=== PATIENT | male | born 1980 | race Caucasian/White ===

== ENCOUNTER → 2016-05-27 | Outpatient (CLI) | payer BC ==
[~2016-05-27] MED LIST: Iopamidol 755 MG/ML 500 ML Multipack Bottle IVPUSH STA
--- NOTE | 2016-05-27 14:58 | CT ---
EXAMINATION: CTA chest HISTORY: Shortness of breath COMPARISON: None TECHNIQUE: Axial CT images obtained through the chest following the administration of 65 mL of Isovu e-370 in the left antecubital fossa. Coronal and sagittal reconstructions obtained. FINDINGS: The lungs are clear without focal consolidation. No pleural effusion or pneumothorax. Mini mal dependent atelectasis is noted. There is a tiny right major fissure nodule. The heart is normal in size without a pericardial effusion. No mediastinal or hilar lymphadenopathy. No axillary lymphad enopathy. Thoracic aorta is normal in caliber. The main and central pulmonary arteries are patent wi thout evidence of a pulmonary embolism. The central airways are clear. There is a 3.7 cm partially peripherally calcified cyst within the spleen. Otherwise the visualized images of the upper abdomen appear normal. No suspicious osseous bodies identified. IMPRESSION: 1. No acute cardiopulmonary finding. 2. There is a 3.7 cm cyst within the spleen.
== END ==
LOC: MW.CT 14:07
PROVIDERS: ATTEND Student in an Organized Health Care Education/Training Program
DX: R06.02 Shortness of breath (principal); R07.1 Chest pain on breathing; D73.4 Cyst of spleen
CPT/HCPCS: 71275; Q9967

== ENCOUNTER 2017-12-13 12:22 | Emergency (ER) | payer BC, OTHER ==
[2017-12-13] MEDS ORDERED: Sodium Chloride 0.9% 1,000 ML IV ONE (12:38)
[2017-12-13] MEDS ORDERED: Ondansetron 4 MG/2 ML SDV IVPUSH ONE (12:38)
--- NOTE | 2017-12-13 12:39 | EDM.PDOC ---
ED HPI GENERAL MEDICAL PROBLEM - General Chief Complaint: Abdominal Pain Stated Complaint: LOWER ABD PAIN Time Seen by Provider: 12/13/17 12:38 Source of Information: Reports: Patient - History of Present Illness INITIAL COMMENTS - FREE TEXT/NARRATIVE: HISTORY AND PHYSICAL: History of present illness: []Patient presents with pain across his lower abdomen left and right frog quadrant for 1.5 hours no fever nausea vomiting chills sweats no chest pain shortness breath headache dizziness palpitation no bowel or urine symptoms pain 9 out of 10 initially has eased up to 2 out of 10 on arrival Review of systems: As per history of present illness and below otherwise all systems reviewed and negative. Past medical history: As per history of present illness and as reviewed below otherwise noncontributory. Surgical history: As per history of present illness and as reviewed below otherwise noncontributory. Social history: No reported history of drug or alcohol abuse. Family history: As per history of present illness and as reviewed below otherwise noncontributory. Physical exam: HEENT: Atraumatic, normocephalic, pupils reactive, negative for conjunctival pallor or scleral icterus, mucous membranes moist, throat clear, neck supple, nontender, trachea midline. Lungs: Clear to auscultation, breath sounds equal bilaterally, chest nontender. Heart: S1S2, regular, negative for clicks, rubs, or JVD. Abdomen: Soft, nondistended, nontender. Negative for masses or hepatosplenomegaly. Negative for costovertebral tenderness. Pelvis: Stable nontender. Genitourinary: No hernia appreciated Rectal: Deferred. Extremities: Atraumatic, negative for cords or calf pain. Neurovascular unremarkable. Neuro: Awake, alert, oriented. Cranial nerves II through XII unremarkable. Cerebellum unremarkable. Motor and sensory unremarkable throughout. Exam nonfocal. Diagnostics: []CBC CMP UA troponin lipase ET abdomen pelvis with and without contrast Therapeutics: []1 L normal saline bolus Zofran 8 mg IV Reglan 10 mg IV T Reglan RP Woradol Impression: abdominalpain Definitive disposition and diagnosis as appropriate pending reevaluation and review of above. Left Lower Abdominal Pain Score (Numeric/FACES): 4 - Related Data Allergies Allergy/AdvReac Type Severity Reaction Status Date / Time No Known Allergies Allergy Verified 08/16/13 09:04 Home Meds: Home Meds Vortioxetine Hydrobromide [Trintellix] 20 mg PO DAILY 12/13/17 [History] ED ROS GENERAL - Review of Systems Review Of Systems: See Below ED EXAM, GENERAL - Physical Exam Exam: See Below Course - Vital Signs Last Recorded V/S: Last Vital Signs Temp 98.1 F 12/13/17 12:37 Pulse 72 12/13/17 14:15 Resp 18 12/13/17 12:37 BP 125/88 12/13/17 14:15 Pulse Ox 97 12/13/17 14:15 - Orders/Labs/Meds Orders: Active Orders 24 hr Category Date Time Status Abdomen Pelvis w wo Cont [CT] Stat Exams 12/13/17 12:52 Taken Labs: Laboratory Tests 12/13/17 12/13/17 12/13/17 Range/Units 12:53 12:53 14:22 WBC 6.85 (4.0-11.0) K/uL RBC 4.97 (4.50-5.90) M/uL Hgb 14.9 (13.0-17.0) g/dL Hct 43.9 (38.0-50.0) % MCV 88.3 (80.0-98.0) fL MCH 30.0 (27.0-32.0) pg MCHC 33.9 (31.0-37.0) g/dL RDW Std Deviation 42.0 (28.0-62.0) fl RDW Coeff of Mercedes 13 (11.0-15.0) % Plt Count 185 (150-400) K/uL MPV 11.10 (7.40-12.00) fL Neut % (Auto) 53.2 (48.0-80.0) % Lymph % (Auto) 32.7 (16.0-40.0) % [place] % (Auto) 9.8 (0.0-15.0) % Eos % (Auto) 3.9 (0.0-7.0) % Baso % (Auto) 0.4 (0.0-1.5) % Neut # (Auto) 3.6 (1.4-5.7) K/uL Lymph # (Auto) 2.2 (0.6-2.4) K/uL [place] # (Auto) 0.7 (0.0-0.8) K/uL Eos # (Auto) 0.3 (0.0-0.7) K/uL Baso # (Auto) 0.0 (0.0-0.1) K/uL Nucleated RBC % 0.0 /100WBC Nucleated RBCs # 0 K/uL Sodium 139 (136-148) mmol/L Potassium 3.9 (3.5-5.1) mmol/L Chloride 106 (98-107) mmol/L Carbon Dioxide 26.5 (21.0-32.0) mmol/L BUN 19 H (7.0-18.0) mg/dL Creatinine 1.0 (0.8-1.3) mg/dL Est Cr Clr Drug Dosing 112.08 mL/min Estimated GFR (MDRD) > 60.0 ml/min Glucose 96 (74-106) mg/dL Calcium 8.9 (8.5-10.1) mg/dL Total Bilirubin 0.4 (0.2-1.0) mg/dL AST 21 (15-37) IU/L ALT 31 (14-63) IU/L Alkaline Phosphatase 87 (46-116) U/L Troponin I < 0.050 (0.000-0.056) ng/mL Total Protein 7.5 (6.4-8.2) g/dL Albumin 4.1 (3.4-5.0) g/dL Globulin 3.4 (2.0-3.5) g/dL Albumin/Globulin Ratio 1.2 L (1.3-2.8) Lipase 113 (73-393) U/L Urine Color YELLOW Urine Appearance CLEAR Urine pH 6.0 (5.0-8.0) Ur Specific [place] 1.025 (1.001-1.035) Urine Protein NEGATIVE (NEGATIVE) mg/dL Urine Glucose (UA) NEGATIVE (NEGATIVE) mg/dL Urine Ketones NEGATIVE (NEGATIVE) mg/dL Urine Occult Blood NEGATIVE (NEGATIVE) Urine Nitrite NEGATIVE (NEGATIVE) Urine Bilirubin NEGATIVE (NEGATIVE) Urine Urobilinogen 0.2 (<2.0) EU/dL Ur Leukocyte Esterase NEGATIVE (NEGATIVE) Urine RBC 0-1 (0-2/HPF) Urine WBC 0-1 (0-5/HPF) Ur Epithelial Cells RARE (NONE-FEW) Urine Bacteria RARE (NEGATIVE) Urine Mucus LIGHT (NONE-MOD) Meds: Medications Discontinued Medications Generic Name Dose Route Start Last Admin Trade Name Freq PRN Reason Stop Dose Admin Sodium Chloride 1,000 mls @ 999 mls/hr 12/13/17 12:38 12/13/17 13:13 Normal Saline IV 12/13/17 13:38 999 mls/hr STAT ONE Administration Iopamidol 100 ml 12/13/17 14:14 12/13/17 14:15 Isovue Multipack-370 (76%) IVPUSH 12/13/17 14:15 100 ml ONETIME ONE Administration Ketorolac Tromethamine 30 mg 12/13/17 12:52 12/13/17 13:13 Toradol IVPUSH 12/13/17 12:53 30 mg ONETIME ONE Administration Metoclopramide HCl 10 mg 12/13/17 15:18 Reglan IV 12/13/17 15:19 ONETIME ONE Ondansetron HCl 8 mg 12/13/17 12:38 12/13/17 13:13 Zofran IVPUSH 12/13/17 12:39 8 mg ONETIME ONE Administration Departure - Departure Time of Disposition: 15:31 Disposition: Home, Self-Care 01 Condition: Good Clinical Impression: Abdominal pain - Discharge Information Referrals: PCP,None [Primary Care Provider] - Forms: ED Department Discharge Additional Instructions: The following information is given to patients seen in the emergency department who are being discharged to home. This information is to outline your options for follow-up care. We provide all patients seen in our emergency department with a follow-up referral. The need for follow-up, as well as the timing and circumstances, are variable depending upon the specifics of your emergency department visit. If you don't have a primary care physician on staff, we will provide you with a referral. We always advise you to contact your personal physician following an emergency department visit to inform them of the circumstance of the visit and for follow-up with them and/or the need for any referrals to a consulting specialist. The emergency department will also refer you to a specialist when appropriate. This referral assures that you have the opportunity for follow-up care with a specialist. All of these measure are taken in an effort to provide you with optimal care, which includes your follow-up. Under all circumstances we always encourage you to contact your private physician who remains a resource for coordinating your care. When calling for follow-up care, please make the office aware that this follow-up is from your recent emergency room visit. If for any reason you are refused follow-up, please contact the [facility] emergency department at and asked to speak to the emergency department charge nurse. - My Orders Last 24 Hours: My Active Orders 12/13/17 12:52 Abdomen Pelvis w wo Cont [CT] Stat - Assessment/Plan Last 24 Hours: My Active Orders 12/13/17 12:52 Abdomen Pelvis w wo Cont [CT] Stat
[2017-12-13] MEDS ORDERED: Ketorolac 30 MG/ML SDV IVPUSH ONE (12:52)
[2017-12-13 13:26] LABS: CHLORIDE,CL 106 mmol/L (98-107); SODIUM,NA 139 mmol/L (136-148)
[2017-12-13] MEDS ORDERED: Iopamidol 755 MG/ML 200 ML Multipack Bottle IVPUSH ONE (14:14)
[2017-12-13] MEDS ORDERED: Metoclopramide 10 MG/2 ML SDV IV ONE (15:18)
--- NOTE | 2017-12-14 18:58 | CT ---
EXAM DATE: 12/13/17 PATIENT'S AGE: 37 Patient: KENIA VILLALPANDO Facility: [place], [place] Site . Site : 1980 Study: CT Abdomen/Pelvis W/ and W/O Cont [id number] 2:16:22 PM Ordering Physician: Kapil Cline Final Report: INDICATION: Lower abdominal pain which started this morning. Crohn`s disease. TECHNIQUE: CT of abdomen and pelvis performed both before and after the IV injection of 100 mL of Isovue-70. FINDINGS: No digital ad trafficker view. 3.6 cm low-density lesion which is likely cystic involving the anterior spleen has moderate peripheral dense calcification and is likely benign and related to the previous site of infection or inflammation. Very small cyst in the left kidney. Few mildly prominent lymph nodes in the portacaval, cailin hepatis, and celiac axis region are likely reactive in nature. Small lymph nodes in the pelvis bilaterally. Small fat containing left inguinal hernia. The appendix is normal. Slight prominence of the terminal ileum wall with low-density change could be related to previous or chronic inflammation. No inflammatory stranding around this segment of the small bowel to suggest active inflammation. Mild prostatic enlargement. No CT evidence for active Crohn`s disease. The no renal or ureteral calculi. Remainder negative. Pressure: IMPRESSION: 1. No acute disease in abdomen or pelvis. No evidence of active Crohn`s disease. Minimal wall prominence terminal ileum with fat density within the wall suggesting previous or chronic inflammation. 2. Peripherally calcified low-density cystic lesion in the spleen is likely a chronic benign finding possibly related to prior infectious etiology or inflammatory etiology. 3. Small left inguinal hernia containing only fat. 4. Mild prostatic enlargement. Please note that all CT scans at this facility use dose modulation, iterative reconstruction, and/or weight-based dosing when appropriate to reduce radiation dose to as low as reasonably achievable. Dictated by Zev Ludwig MD @ Dec 13 2017 2:51PM (Electronic Signature) Report Signed by Proxy. AARON
== END 2017-12-13 15:40 | disposition home or self-care (01) ==
LOC: MW.ED 12:22
DX: R10.32 Left lower quadrant pain (principal); R10.31 Right lower quadrant pain; Z79.899 Other long term (current) drug therapy
CPT/HCPCS: 36415; 74178; 80053; 81001; 83690; 84484; 85025; 96361; 96374; 96375; 99284; J1885; J2405; J2765; J7040; Q9967; 99283

== ENCOUNTER 2018-06-27 16:19 | Emergency (ER) | payer SELFPAY ==
[2018-06-27] MEDS ORDERED: Ondansetron 4 MG/2 ML SDV IVPUSH ONE (16:39)
[2018-06-27] MEDS ORDERED: Ketorolac 30 MG/ML SDV IVPUSH ONE (16:39)
[2018-06-27] MEDS ORDERED: Sodium Chloride 0.9% 1,000 ML IV ONE (16:39)
--- NOTE | 2018-06-27 16:40 | EDM.PDOC ---
ED HPI GENERAL MEDICAL PROBLEM - General Chief Complaint: Abdominal Pain Stated Complaint: PAIN ALL OVER Time Seen by Provider: 06/27/18 16:26 Source of Information: Reports: Patient History Limitations: Reports: No Limitations - History of Present Illness INITIAL COMMENTS - FREE TEXT/NARRATIVE: HISTORY AND PHYSICAL: History of present illness: Patient is a 38-year-old male presents to the ED today with concern of right flank pain and a 9 out of 10 RLQ abdominal pain. Patient states the symptoms have been ongoing for the past 2 days. Patient states symptoms are worse when he tries to lay back and better when he is sitting up. Patient has taken over- the-counter Tylenol and ibuprofen without relief of symptoms. Patient states he does have a history of Crohn's colitis but is not medicated for this as it has been well-controlled. Patient denies any changes in his bowels or any difficulties with bowel movement. Patient denies fever, chills, chest pain, shortness of breath, or cough. Denies headache, neck stiff ness, change in vision, syncope, or near syncope. Denies nausea, vomiting, abdominal pain, diarrhea, constipation, or dysuria. Has not noted any blood in urine or stool. Patient has been eating and drinking appropriately. Review of systems: As per history of present illness and below otherwise all systems reviewed and negative. Past medical history: As per history of present illness and as reviewed below otherwise noncontributory. Surgical history: As per history of present illness and as reviewed below otherwise noncontributory. Social history: See social history for further information Family history: As per history of present illness and as reviewed below otherwise noncontributory. Physical exam: General: Patient is alert, oriented, and in no acute distress. Patient sitting comfortably on exam table. HEENT: Atraumatic, normocephalic, pupils equal and reactive bilaterally, negative for conjunctival pallor or scleral icterus, mucous membranes moist, TMs normal bilaterally, throat clear, neck supple, nontender, trachea midline. No drooling or trismus noted. No meningeal signs. No hot potato voice noted. Lungs: Clear to auscultation, breath sounds equal bilaterally, chest nontender. Heart: S1S2, regular rate and rhythm without overt murmur Abdomen: Patient does have severe pain when asked to lie down on the exam table. Patient does have moderate pain to palpation of the right lower quadrant. Bowel sounds present throughout all quadrants and are slightly hyperactive. Obese, Soft, nondistended. Negative for masses or hepatosplenomegaly. Negative for costovertebral tenderness. Pelvis: Stable nontender. Genitourinary: Deferred. Rectal: Deferred. Skin: Intact, warm, dry. No lesions or rashes noted. Extremities: Atraumatic, negative for cords or calf pain. Neurovascular unremarkable. Neuro: Awake, alert, oriented. Cranial nerves II through XII unremarkable. Cerebellum unremarkable. Motor and sensory unremarkable throughout. Exam nonfocal. Notes: Discussed the importance for follow-up with a primary care provider. Voices understanding and is agreeable to plan of care. Denies any further questions or concerns at this time. Diagnostics: CBC, CMP, EKG, lipase, troponin, UA, abdominal pelvic CT Therapeutics: Normal saline, Zofran, Toradol, morphine Prescription: Diclofenac, Flexeril Impression: Abdominal pain, unspecified Plan: 1. Take medications as prescribed. 2. Follow-up with her primary care provider as discussed. 3. Return to the ED as needed and as discussed. Definitive disposition and diagnosis as appropriate pending reevaluation and review of above. right abdomen and flank Pain Score (Numeric/FACES): 9 - Related Data Allergies Allergy/AdvReac Type Severity Reaction Status Date / Time No Known Allergies Allergy Verified 06/27/18 16:33 Home Meds: Home Meds Vortioxetine Hydrobromide [Trintellix] 20 mg PO DAILY 12/13/17 [History] Past Medical History Gastrointestinal History: Reports: Other (See Below) Other Gastrointestinal History: chrons Psychiatric History: Reports: Anxiety - Infectious Disease History Infectious Disease History: Reports: Chicken Pox - Past Surgical History Other HEENT Surgeries/Procedures: jaw surgery , ear surgery Other Musculoskeletal Surgeries/Procedures:: hand surgery Social & Family History - Family History Family Medical History: Noncontributory - Tobacco Use Smoking Status *Q: Current Every Day Smoker Years of Tobacco use: 21 Packs/Tins Daily: 1 - Caffeine Use Caffeine Use: Reports: Energy Drinks, Soda - Recreational Drug Use Recreational Drug Use: No ED ROS GENERAL - Review of Systems Review Of Systems: ROS reveals no pertinent complaints other than HPI. ED EXAM, RENAL/ - Physical Exam Exam: See Below (See dictation) Course - Vital Signs Last Recorded V/S: Last Vital Signs Temp 36.4 C 06/27/18 16:34 Pulse 80 06/27/18 18:38 Resp 18 06/27/18 18:38 BP 124/80 06/27/18 18:38 Pulse Ox 97 06/27/18 18:38 - Orders/Labs/Meds Orders: Active Orders 24 hr Category Date Time Status EKG Documentation Completion [RC] STAT Care 06/27/18 16:48 Active Labs: Laboratory Tests 06/27/18 06/27/18 06/27/18 Range/Units 16:39 17:00 17:00 WBC 6.62 (4.0-11.0) K/uL RBC 5.29 (4.50-5.90) M/uL Hgb 15.7 (13.0-17.0) g/dL Hct 45.4 (38.0-50.0) % MCV 85.8 (80.0-98.0) fL MCH 29.7 (27.0-32.0) pg MCHC 34.6 (31.0-37.0) g/dL RDW Std Deviation 40.6 (28.0-62.0) fl RDW Coeff of Mercedes 13 (11.0-15.0) % Plt Count 171 (150-400) K/uL MPV 10.80 (7.40-12.00) fL Neut % (Auto) 48.3 (48.0-80.0) % Lymph % (Auto) 38.1 (16.0-40.0) % [place] % (Auto) 8.6 (0.0-15.0) % Eos % (Auto) 4.7 (0.0-7.0) % Baso % (Auto) 0.3 (0.0-1.5) % Neut # (Auto) 3.2 (1.4-5.7) K/uL Lymph # (Auto) 2.5 H (0.6-2.4) K/uL [place] # (Auto) 0.6 (0.0-0.8) K/uL Eos # (Auto) 0.3 (0.0-0.7) K/uL Baso # (Auto) 0.0 (0.0-0.1) K/uL Nucleated RBC % 0.0 /100WBC Nucleated RBCs # 0 K/uL Sodium 141 (136-148) mmol/L Potassium 4.3 (3.5-5.1) mmol/L Chloride 105 (98-107) mmol/L Carbon Dioxide 26.2 (21.0-32.0) mmol/L BUN 16 (7.0-18.0) mg/dL Creatinine 0.9 (0.8-1.3) mg/dL Est Cr Clr Drug Dosing 123.30 mL/min Estimated GFR (MDRD) > 60.0 ml/min Glucose 93 (74-106) mg/dL Calcium 9.1 (8.5-10.1) mg/dL Total Bilirubin 0.5 (0.2-1.0) mg/dL AST 28 (15-37) IU/L ALT 50 (14-63) IU/L Alkaline Phosphatase 86 (46-116) U/L Troponin I < 0.050 (0.000-0.056) ng/mL Total Protein 7.6 (6.4-8.2) g/dL Albumin 4.1 (3.4-5.0) g/dL Globulin 3.5 (2.6-4.0) g/dL Albumin/Globulin Ratio 1.2 (0.9-1.6) Lipase 97 (73-393) U/L Urine Color Urine Appearance Urine pH (5.0-8.0) Ur Specific [place] (1.001-1.035) Urine Protein (NEGATIVE) mg/dL Urine Glucose (UA) (NEGATIVE) mg/dL Urine Ketones (NEGATIVE) mg/dL Urine Occult Blood (NEGATIVE) Urine Nitrite (NEGATIVE) Urine Bilirubin (NEGATIVE) Urine Urobilinogen (<2.0) EU/dL Ur Leukocyte Esterase (NEGATIVE) 06/27/18 Range/Units 17:15 WBC (4.0-11.0) K/uL RBC (4.50-5.90) M/uL Hgb (13.0-17.0) g/dL Hct (38.0-50.0) % MCV (80.0-98.0) fL MCH (27.0-32.0) pg MCHC (31.0-37.0) g/dL RDW Std Deviation (28.0-62.0) fl RDW Coeff of Merceeds (11.0-15.0) % Plt Count (150-400) K/uL MPV (7.40-12.00) fL Neut % (Auto) (48.0-80.0) % Lymph % (Auto) (16.0-40.0) % [place] % (Auto) (0.0-15.0) % Eos % (Auto) (0.0-7.0) % Baso % (Auto) (0.0-1.5) % Neut # (Auto) (1.4-5.7) K/uL Lymph # (Auto) (0.6-2.4) K/uL [place] # (Auto) (0.0-0.8) K/uL Eos # (Auto) (0.0-0.7) K/uL Baso # (Auto) (0.0-0.1) K/uL Nucleated RBC % /100WBC Nucleated RBCs # K/uL Sodium (136-148) mmol/L Potassium (3.5-5.1) mmol/L Chloride (98-107) mmol/L Carbon Dioxide (21.0-32.0) mmol/L BUN (7.0-18.0) mg/dL Creatinine (0.8-1.3) mg/dL Est Cr Clr Drug Dosing mL/min Estimated GFR (MDRD) ml/min Glucose (74-106) mg/dL Calcium (8.5-10.1) mg/dL Total Bilirubin (0.2-1.0) mg/dL AST (15-37) IU/L ALT (14-63) IU/L Alkaline Phosphatase (46-116) U/L Troponin I (0.000-0.056) ng/mL Total Protein (6.4-8.2) g/dL Albumin (3.4-5.0) g/dL Globulin (2.6-4.0) g/dL Albumin/Globulin Ratio (0.9-1.6) Lipase (73-393) U/L Urine Color YELLOW Urine Appearance CLEAR Urine pH 6.5 (5.0-8.0) Ur Specific [place] 1.020 (1.001-1.035) Urine Protein NEGATIVE (NEGATIVE) mg/dL Urine Glucose (UA) NEGATIVE (NEGATIVE) mg/dL Urine Ketones NEGATIVE (NEGATIVE) mg/dL Urine Occult Blood NEGATIVE (NEGATIVE) Urine Nitrite NEGATIVE (NEGATIVE) Urine Bilirubin NEGATIVE (NEGATIVE) Urine Urobilinogen 0.2 (<2.0) EU/dL Ur Leukocyte Esterase NEGATIVE (NEGATIVE) Meds: Medications Discontinued Medications Generic Name Dose Route Start Last Admin Trade Name Freq PRN Reason Stop Dose Admin Sodium Chloride 1,000 mls @ 999 mls/hr 06/27/18 16:39 06/27/18 17:10 Normal Saline IV 06/27/18 17:39 999 mls/hr BOLUS ONE Administration Iopamidol 100 ml 06/27/18 18:08 06/27/18 18:08 Isovue Multipack-370 (76%) IVPUSH 06/27/18 18:09 100 ml ONETIME STA Administration Ketorolac Tromethamine 30 mg 06/27/18 16:39 06/27/18 17:11 Toradol IVPUSH 06/27/18 16:40 30 mg ONETIME ONE Administration Morphine Sulfate 2 mg 06/27/18 17:35 06/27/18 17:52 Morphine IVPUSH 06/27/18 17:36 2 mg ONETIME ONE Administration Ondansetron HCl 4 mg 06/27/18 16:39 06/27/18 17:12 Zofran IVPUSH 06/27/18 16:40 Not Given ONETIME ONE Departure - Departure Time of Disposition: 18:49 Disposition: Home, Self-Care 01 Clinical Impression: Abdominal pain Qualifiers: Abdominal location: lower abdomen, unspecified Qualified Code(s): R10.30 - Lower abdominal pain, unspecified - Discharge Information Instructions: Abdominal Pain, Adult, [id number] Referrals: Shelia Ojeda DO [Primary Care Provider] - Forms: ED Department Discharge Additional Instructions: The following information is given to patients seen in the emergency department who are being discharged to home. This information is to outline your options for follow-up care. We provide all patients seen in our emergency department with a follow-up referral. The need for follow-up, as well as the timing and circumstances, are variable depending upon the specifics of your emergency department visit. If you don't have a primary care physician on staff, we will provide you with a referral. We always advise you to contact your personal physician following an emergency department visit to inform them of the circumstance of the visit and for follow-up with them and/or the need for any referrals to a consulting specialist. The emergency department will also refer you to a specialist when appropriate. This referral assures that you have the opportunity for follow-up care with a specialist. All of these measure are taken in an effort to provide you with optimal care, which includes your follow-up. Under all circumstances we always encourage you to contact your private physician who remains a resource for coordinating your care. When calling for follow-up care, please make the office aware that this follow-up is from your recent emergency room visit. If for any reason you are refused follow-up, please contact the [facility] Emergency Department at and asked to speak to the emergency department charge nurse. [facility] [address] [place] [id number] [id number] 1. Take medications as prescribed. You can alternate ibuprofen and Tylenol as directed for pain and discomfort. 2. Follow up with her primary care provider as discussed. 3. Return to the ED as needed and as discussed. - My Orders Last 24 Hours: My Active Orders 06/27/18 16:48 EKG Documentation Completion [RC] STAT - Assessment/Plan Last 24 Hours: My Active Orders 06/27/18 16:48 EKG Documentation Completion [RC] STAT
[2018-06-27] MEDS ORDERED: Morphine 2 MG/ML Syringe IVPUSH ONE (17:35)
[2018-06-27 17:44] LABS: CHLORIDE,CL 105 mmol/L (98-107); SODIUM,NA 141 mmol/L (136-148)
[2018-06-27] MEDS ORDERED: Iopamidol 755 MG/ML 500 ML Multipack Bottle IVPUSH STA (18:08)
--- NOTE | 2018-06-27 18:41 | CT ---
INDICATION: Right upper quadrant/right flank pain TECHNIQUE: CT abdomen and pelvis acquired with IV contrast. 100 cc Isovue 370 COMPARISON: None FINDINGS: Lower chest: Unremarkable. Liver: Unremarkable. Spleen: 3.8 centimeter rim calcified splenic cyst involving the anterior aspect of the spleen. Pancreas: Unremarkable. Gallbladder and bile ducts: Unremarkable. Kidneys: Probable 1.0 centimeter cyst mid zone left kidney. Adrenal glands: Unremarkable. GI tract: Unremarkable. Appendix is normal. Vascular structures: Unremarkable. Lymph nodes: Unremarkable. Miscellaneous: Small fat containing umbilical hernia. No free air or significant free fluid. Pelvic Organs: Unremarkable. Bones: Unremarkable for age. IMPRESSION: No definitive findings to explain the patient`s symptoms. No urinary tract stones or hydronephrosis. Normal appearing appendix. 3.8 centimeter rim calcified splenic cyst. Dictated by Daniel Everett MD @ 06/27/2018 6:39:31 PM Please note that all CT scans at this facility use dose modulation, iterative reconstruction, and/or weight-based dosing when appropriate to reduce radiation dose to as low as reasonably achievable. Dictated by: Daniel Everett MD @ 06/27/2018 18:39:41 (Electronically Signed)
== END 2018-06-27 19:10 | disposition home or self-care (01) ==
LOC: MW.ED 16:19
DX: R10.31 Right lower quadrant pain (principal); F17.210 Nicotine dependence, cigarettes, uncomplicated
CPT/HCPCS: 36415; 74177; 80053; 81003; 83690; 84484; 85025; 93005; 96361; 96374; 96375; 99284; J1885; J2270; J7040; Q9967

== ENCOUNTER 2020-07-17 06:35 | Emergency (ER) | payer SELFPAY ==
[2020-07-17] MEDS ORDERED: Haloperidol Lactate 5 MG/ML SDV IM ONE (07:21)
[2020-07-17] MEDS ORDERED: diphenhydrAMINE 50 MG/ML SDV IVPUSH ONE (07:21)
[2020-07-17] MEDS ORDERED: Dextrose 5%-Lactated Ringers 1,000 ML IV SCH (07:30)
[2020-07-17 07:43] LABS: BLOOD UREA NITROGEN,BUN 14 mg/dL (7.0-18.0); CARBON DIOXIDE,CO2 28.4 mmol/L (21.0-32.0); CHLORIDE,CL 107 mmol/L (98-107); GLUCOSE RANDOM 107 mg/dL (74-106); POTASSIUM,K 3.7 mmol/L (3.5-5.1); SODIUM,NA 144 mmol/L (136-148)
[2020-07-17 08:27] LABS: CORONAVIRUS COVID-19 NAA NEGATIVE (NEGATIVE); INFLUENZA A NAA NEGATIVE (NEGATIVE); INFLUENZA B NAA NEGATIVE (NEGATIVE)
[2020-07-17] MEDS ORDERED: Calcium Gluconate 10% 1 GM/10 ML SDV IVPUSH ONE (08:28)
--- NOTE | 2020-07-17 09:54 | EDM.PDOC ---
ED HPI GENERAL MEDICAL PROBLEM - General Chief Complaint: Gastrointestinal Problem Stated Complaint: VOMITING Time Seen by Provider: 07/17/20 07:07 - History of Present Illness INITIAL COMMENTS - FREE TEXT/NARRATIVE: CHIEF COMPLAINT(S): Vomiting HISTORY OF PRESENT ILLNESS: This is a 40-year-old with a past medical history of major depressive disorder and reported history of Crohn's disease who comes to the emergency department with a chief complaint of vomiting. The patient states that starting since yesterday a.m. he has been experiencing vomiting which is nonbloody and nonbilious. he states that she is not actually vomiting up any thing but her food and dry heaving. he states that she tried to take meds but he was unable to keep that down. he states that she is experiencing stomach pain all through her abdomen which she describes as crampy without any radiation. he rates this pain a 7 out of 10. he denies any aggravating factors or relieving factors. he states that he also has an associated headache which is located just behind his eyes not associated with any double vision, numbness, tingling, weakness. he rates this pain as 5 out of 10 without any radiation. he states that there are sick contacts in his girlfriend's son. He also had similar symptoms. States that this feels similar to his prior Crohn's flare. REVIEW OF SYSTEMS: Constitutional: Denies fever, chills. Eyes: Denies eye pain Ears, Nose, Mouth, & Throat: Denies earache Cardiovascular: Denies chest pain Respiratory: Denies shortness of breath Gastrointestinal: Positive for diffuse abdominal pain nausea and vomiting and diarrhea. Denies hematemesis, bilious emesis. Genitourinary: Denies hematuria Skin:Denies a rash MSK: Denies joint pain Neurological: Positive for headache. Denies blurred vision, double vision, numbness, tingling, weakness Psychiatric: Positive for depression. PAST MEDICAL HISTORY: As per history of present illness and as reviewed below otherwise noncontributory. SURGICAL HISTORY: As per history of present illness and as reviewed below otherwise noncontributory. SOCIAL HISTORY: As per history of present illness and as reviewed below otherwise noncontributory. FAMILY HISTORY: As per history of present illness and as reviewed below otherwise noncontributory. EXAMINATION OF ORGAN SYSTEMS/BODY AREAS: Constitutional: Blood pressure is 149/94, heart rate 60, respiratory rate 18 with an oxygen saturation 95% on room air. Temperature 36.1 General: Overall well-appearing man who is in no acute distress Psychiatric: Flat affect but cooperative. Denies SI or HI. Eyes: No scleral icterus or conjunctival erythema ENMT: Moist mucous membranes. No pharyngeal erythema Cardiovascular: Regular, rate, and rhythm. No gallops, murmurs, or rubs. Bilateral upper extremity pulses symmetric and intact. No peripheral edema. No JVD. Respiratory: Lungs clear to auscultation bilaterally. No wheezes, rales, or rhonchi. Gastrointestinal: Soft, non-tender, non-distended. Normoactive bowel sounds no rebound or guarding. Genitourinary: No suprapubic tenderness Musculoskeletal: Normal range of motion. Skin: No lesions or abrasions. Neurological: Alert, GCS 15 MEDICAL DECISION MAKING AND COURSE IN THE ED WITH INTERPRETATION/REVIEW OF DIAGNOSTIC STUDIES: This is a 40-year-old man with a past medical history of major depressive disorder and reported history of Crohn's disease not on any medications who comes to the emergency department with 1 day of nausea, vomiting, and diarrhea with associated headache. At this time I did review the patient's prior records and he has had multiple CTs in the past without showing any colitis. There is no evidence of any Crohn's disease in our system however we will treat the patient symptomatically. We will provide the patient with Haldol, Benadryl for pain and nausea relief. We will provide the patient with 1 L of D5 lactated Ringer's. Will obtain CBC, CMP, Covid. The patient's abdomen is nontender therefore I do not believe any imaging is indicated. Given his sick contacts I do believe this is likely secondary to gastroenteritis given the similar symptoms. Laboratory: CBC is unremarkable. CMP is unremarkable except for some hyperglycemia at 7.7. Covid and influenza are negative. After period of observation the patient was able to tolerate p.o. His pain had improved. I did discuss with him at this time that I would like him to continue with p.o. hydration and use Zofran as needed for nausea. He is to return for any new or worsening symptoms and I encouraged the patient to follow-up with his primary care physician. He was amenable to discharge at this time and had no further questions DISPOSITION: The patient was discharged home in stable condition. The patient will follow up with primary care physician within 3 to 5 days CONDITION: Fair PROCEDURES: None FINAL IMPRESSION(S)/DIAGNOSES: 1. Acute abdominal pain 2. Acute vomiting likely gastroenteritis 3. Acute diarrhea likely gastroenteritis Jude Robles M.D. Abdomen Pain Score (Numeric/FACES): 7 - Related Data Allergies Allergy/AdvReac Type Severity Reaction Status Date / Time No Known Allergies Allergy Verified 07/17/20 06:47 Home Meds: Home Meds Ondansetron [Zofran ODT] 4 mg PO Q6H PRN #6 tab.dis 07/17/20 [Rx] Past Medical History - Past Health History Medical/Surgical History: Denies Medical/Surgical History Gastrointestinal History: Reports: Other (See Below) Other Gastrointestinal History: chrons Psychiatric History: Reports: Anxiety, Depression - Infectious Disease History Infectious Disease History: Reports: Chicken Pox - Past Surgical History Other HEENT Surgeries/Procedures: jaw surgery , ear surgery Other Musculoskeletal Surgeries/Procedures:: hand surgery Social & Family History - Family History Family Medical History: No Pertinent Family History - Tobacco Use Tobacco Use Status *Q: Current Every Day Tobacco User Years of Tobacco use: 24 Packs/Tins Daily: 1 - Caffeine Use Caffeine Use: Reports: Coffee, Energy Drinks, Soda, Tea - Recreational Drug Use Recreational Drug Use: No ED ROS GENERAL - Review of Systems Review Of Systems: See Below ED EXAM, GI/ABD - Physical Exam Exam: See Below Course - Vital Signs Last Recorded V/S: Last Vital Signs Temp 36.1 C 07/17/20 06:47 Pulse 54 L 07/17/20 09:50 Resp 17 07/17/20 09:20 BP 123/82 07/17/20 09:50 Pulse Ox 95 07/17/20 09:50 - Orders/Labs/Meds Labs: Laboratory Tests 07/17/20 07/17/20 07/17/20 Range/Units 07:05 07:05 07:24 WBC 5.21 (4.0-11.0) K/uL RBC 4.75 (4.50-5.90) M/uL Hgb 14.2 (13.0-17.0) g/dL Hct 42.4 (38.0-50.0) % MCV 89.3 (80.0-98.0) fL MCH 29.9 (27.0-32.0) pg MCHC 33.5 (31.0-37.0) g/dL RDW Std Deviation 42.3 (28.0-62.0) fl RDW Coeff of Mercedes 13 (11.0-15.0) % Plt Count 179 (150-400) K/uL MPV 11.90 (7.40-12.00) fL Neut % (Auto) 58.4 (48.0-80.0) % Lymph % (Auto) 29.8 (16.0-40.0) % Jackson % (Auto) 8.3 (0.0-15.0) % Eos % (Auto) 3.1 (0.0-7.0) % Baso % (Auto) 0.4 (0.0-1.5) % Neut # (Auto) 3.1 (1.4-5.7) K/uL Lymph # (Auto) 1.6 (0.6-2.4) K/uL Jackson # (Auto) 0.4 (0.0-0.8) K/uL Eos # (Auto) 0.2 (0.0-0.7) K/uL Baso # (Auto) 0.0 (0.0-0.1) K/uL Nucleated RBC % 0.0 /100WBC Nucleated RBCs # 0 K/uL Sodium 144 (136-148) mmol/L Potassium 3.7 (3.5-5.1) mmol/L Chloride 107 (98-107) mmol/L Carbon Dioxide 28.4 (21.0-32.0) mmol/L BUN 14 (7.0-18.0) mg/dL Creatinine 1.1 (0.8-1.3) mg/dL Est Cr Clr Drug Dosing 98.87 mL/min Estimated GFR (MDRD) > 60.0 ml/min Glucose 107 H (74-106) mg/dL POC Glucose 94 (70-99) mg/dL Calcium 7.7 L (8.5-10.1) mg/dL Total Bilirubin 0.4 (0.2-1.0) mg/dL AST 25 (15-37) IU/L ALT 36 (14-63) IU/L Alkaline Phosphatase 70 (46-116) U/L Total Protein 6.7 (6.4-8.2) g/dL Albumin 3.4 (3.4-5.0) g/dL Globulin 3.3 (2.6-4.0) g/dL Albumin/Globulin Ratio 1.0 (0.9-1.6) Influenza Type A RNA (NEGATIVE) Influenza Type B RNA (NEGATIVE) SARS-CoV-2 RNA (TOMI) (NEGATIVE) 07/17/20 Range/Units 07:40 WBC (4.0-11.0) K/uL RBC (4.50-5.90) M/uL Hgb (13.0-17.0) g/dL Hct (38.0-50.0) % MCV (80.0-98.0) fL MCH (27.0-32.0) pg MCHC (31.0-37.0) g/dL RDW Std Deviation (28.0-62.0) fl RDW Coeff of Mercedes (11.0-15.0) % Plt Count (150-400) K/uL MPV (7.40-12.00) fL Neut % (Auto) (48.0-80.0) % Lymph % (Auto) (16.0-40.0) % Jackson % (Auto) (0.0-15.0) % Eos % (Auto) (0.0-7.0) % Baso % (Auto) (0.0-1.5) % Neut # (Auto) (1.4-5.7) K/uL Lymph # (Auto) (0.6-2.4) K/uL Jackson # (Auto) (0.0-0.8) K/uL Eos # (Auto) (0.0-0.7) K/uL Baso # (Auto) (0.0-0.1) K/uL Nucleated RBC % /100WBC Nucleated RBCs # K/uL Sodium (136-148) mmol/L Potassium (3.5-5.1) mmol/L Chloride (98-107) mmol/L Carbon Dioxide (21.0-32.0) mmol/L BUN (7.0-18.0) mg/dL Creatinine (0.8-1.3) mg/dL Est Cr Clr Drug Dosing mL/min Estimated GFR (MDRD) ml/min Glucose (74-106) mg/dL POC Glucose (70-99) mg/dL Calcium (8.5-10.1) mg/dL Total Bilirubin (0.2-1.0) mg/dL AST (15-37) IU/L ALT (14-63) IU/L Alkaline Phosphatase (46-116) U/L Total Protein (6.4-8.2) g/dL Albumin (3.4-5.0) g/dL Globulin (2.6-4.0) g/dL Albumin/Globulin Ratio (0.9-1.6) Influenza Type A RNA NEGATIVE (NEGATIVE) Influenza Type B RNA NEGATIVE (NEGATIVE) SARS-CoV-2 RNA (TOMI) NEGATIVE (NEGATIVE) Meds: Medications Discontinued Medications Generic Name Dose Route Start Last Admin Trade Name Freq PRN Reason Stop Dose Admin Calcium Gluconate 1 gm 07/17/20 08:28 07/17/20 09:20 Calcium Gluconate 10% 1 Gm/10 Ml Sdv IVPUSH 07/17/20 08:29 1 gm ONETIME ONE Administration Diphenhydramine HCl 50 mg 07/17/20 07:21 07/17/20 07:32 Diphenhydramine 50 Mg/Ml Sdv IVPUSH 07/17/20 07:22 50 mg ONETIME ONE Administration Haloperidol Lactate 5 mg 07/17/20 07:21 07/17/20 07:31 Haloperidol Lactate 5 Mg/Ml Sdv IM 07/17/20 07:22 5 mg ONETIME ONE Administration Dextrose/Lactated Ringer's 1,000 mls @ 999 mls/hr 07/17/20 07:30 07/17/20 07:32 Dextrose 5%-Lactated Ringers IV 999 mls/hr ASDIRECTED TAYLOR Administration Departure - Departure Time of Disposition: 09:54 Disposition: Home, Self-Care 01 Condition: Fair Clinical Impression: Vomiting, Diarrhea - Discharge Information *PRESCRIPTION DRUG MONITORING PROGRAM REVIEWED*: No *COPY OF PRESCRIPTION DRUG MONITORING REPORT IN PATIENT RENE: No Prescriptions: Ondansetron [Zofran ODT] 4 mg PO Q6H PRN #6 tab.dis PRN Reason: Nausea/Vomiting Instructions: Viral Gastroenteritis, Adult, [id number], Food Choices to Help Relieve Diarrhea, Adult, Nausea and Vomiting, Adult, [id number] Referrals: Shelia Ojeda DO [Primary Care Provider] - Forms: ED Department Discharge Additional Instructions: You evaluate today on an emergent basis. We did treat you symptomatically. You were able to eat and drink. At this time I do believe your okay to go home. I do recommend that you continue with a bland diet and continue to hydrate with Gatorade or Pedialyte. Please use the medication that I gave you Zofran as needed for nausea. If you have any worsening symptoms such as blood in your stool, worsening abdominal pain or you are unable to eat or drink please return to the emergency department. Otherwise please follow-up with your primary care physician within 2 to 3 days. [facility] - Primary Care [address] [place], [place] [id number] [facility] [address] [place] [id number] The patient is informed of any results of their evaluation and diagnostic workup and all questions are answered. They are given discharge instructions and return precautions. The patient is stable for discharge. The patient states they understand and agree with the plan and that they will return if their symptoms get worse or if they have any new concerns. The following information is given to patients seen in the emergency department who are being discharged to home. This information is to outline your options for follow-up care. We provide all patients seen in our emergency department with a follow-up referral. The need for follow-up, as well as the timing and circumstances, are variable depending upon the specifics of your emergency department visit. If you don't have a primary care physician on staff, we will provide you with a referral. We always advise you to contact your personal physician following an emergency department visit to inform them of the circumstance of the visit and for follow-up with them and/or the need for any referrals to a consulting specialist. The emergency department will also refer you to a specialist when appropriate. This referral assures that you have the opportunity for follow-up care with a specialist. All of these measure are taken in an effort to provide you with optimal care, which includes your follow-up. Under all circumstances we always encourage you to contact your private physician who remains a resource for coordinating your care. When calling for follow-up care, please make the office aware that this follow-up is from your recent emergency room visit. If for any reason you are refused follow-up, please contact the [facility] Emergency Department at and asked to speak to the emergency department charge nurse. Sepsis Event Note (ED) - Evaluation Sepsis Screening Result: No Definite Risk
--- NOTE | 2020-07-18 18:51 | PCM.EKG ---
#1 Interpretation EKG Date: 07/17/20 Time: 08:00 Rhythm: NSR Rate (Beats/Min): 55 [place]: Normal P-Wave: Present QRS: Normal ST-T: Normal (T wave inversion III) QT: Normal Comparison: NA - No Prior EKG EKG Interpretation Comments: Sinus Rhythm
== END 2020-07-17 09:58 | disposition home or self-care (01) ==
LOC: MW.ED 06:35
DX: R11.2 Nausea with vomiting, unspecified (principal); R19.7 Diarrhea, unspecified; Z72.0 Tobacco use; Z20.822 Contact with and (suspected) exposure to COVID-19
CPT/HCPCS: 0240U; 36415; 80053; 82947; 85025; 93005; 96374; 96375; 99284; J0610; J1200; J1630; J7121; 93010; 99283

== ENCOUNTER 2020-10-05 20:38 | Emergency (ER) | payer OTHER ==
--- NOTE | 2020-10-05 21:12 | EDM.PDOCBH ---
ED HPI GENERAL MEDICAL PROBLEM - General Chief Complaint: Behavioral/Psych Stated Complaint: MENTAL HEALTH EVAL Time Seen by Provider: 10/05/20 20:44 Source of Information: Reports: Patient History Limitations: Reports: No Limitations - History of Present Illness INITIAL COMMENTS - FREE TEXT/NARRATIVE: Patient is a 40-year-old male with history of schizophrenia depression disorder presents today for suicide ideation. Patient dates for the past few weeks has been try to harm self. He reports that he took some Drano some antifreeze a few days ago without success. He also tried to cut his his neck with a knife with office as well and also his wrist and stab stab self in the chest. He has not had any attempt today or yesterday. On exam he has no complaints. - Related Data Allergies Allergy/AdvReac Type Severity Reaction Status Date / Time No Known Allergies Allergy Verified 10/05/20 20:45 Home Meds: Home Meds Ondansetron [Zofran ODT] 4 mg PO Q6H PRN #6 tab.dis 07/17/20 [Rx] Past Medical History - Past Health History Medical/Surgical History: Denies Medical/Surgical History Gastrointestinal History: Reports: Other (See Below) Other Gastrointestinal History: chrons Psychiatric History: Reports: Anxiety, Depression, Suicide Attempt, Suicidal Ideation - Infectious Disease History Infectious Disease History: Reports: Chicken Pox - Past Surgical History Other HEENT Surgeries/Procedures: jaw surgery , ear surgery Other Musculoskeletal Surgeries/Procedures:: hand surgery Social & Family History - Family History Family Medical History: No Pertinent Family History - Caffeine Use Caffeine Use: Reports: Energy Drinks - Recreational Drug Use Recreational Drug Use: No ED ROS GENERAL - Review of Systems Review Of Systems: See Below Constitutional: Reports: No Symptoms HEENT: Reports: No Symptoms Respiratory: Reports: No Symptoms Cardiovascular: Reports: No Symptoms Endocrine: Reports: No Symptoms GI/Abdominal: Reports: No Symptoms : Reports: No Symptoms Musculoskeletal: Reports: No Symptoms Skin: Reports: No Symptoms Neurological: Reports: No Symptoms Psychiatric: Reports: Suicidal Ideation Hematologic/Lymphatic: Reports: No Symptoms Immunologic: Reports: No Symptoms ED EXAM, BEHAVIORAL HEALTH - Physical Exam Exam: See Below Exam Limited By: No Limitations General Appearance: Alert, WD/WN, No Apparent Distress Eye Exam: Bilateral Eye: EOMI, PERRL Respiratory/Chest: No Respiratory Distress, Lungs Clear Cardiovascular: Normal Peripheral Pulses, Regular Rate, Rhythm GI/Abdominal: Normal Bowel Sounds, Soft, Non-Tender Extremities: Normal Inspection, Normal Range of Motion Neurological: Alert, Normal Mood/Affect, Normal Cognition, Normal Gait Psychiatric: Inattentive, Suicidal Plan #1 Interpretation EKG Date: 10/05/20 Time: 21:38 Rhythm: Other (sinus tachy) Rate (Beats/Min): 108 ST-T: Normal COURSE, BEHAVIORAL HEALTH COMP - Course Vital Signs: Last Vital Signs Temp 98.1 F 10/05/20 20:45 Pulse 110 H 10/05/20 22:45 Resp 20 10/05/20 22:45 BP 143/97 H 10/05/20 22:45 Pulse Ox 96 10/05/20 22:45 Orders, Labs, Meds: Active Orders 24 hr Category Date Time Status EKG Documentation Completion [RC] STAT Care 10/05/20 21:08 Active Laboratory Tests 10/05/20 10/05/20 10/05/20 Range/Units 21:15 21:17 21:24 WBC 7.74 (4.0-11.0) K/uL RBC 5.31 (4.50-5.90) M/uL Hgb 16.0 (13.0-17.0) g/dL Hct 46.4 (38.0-50.0) % MCV 87.4 (80.0-98.0) fL MCH 30.1 (27.0-32.0) pg MCHC 34.5 (31.0-37.0) g/dL RDW Std Deviation 44.8 (28.0-62.0) fl RDW Coeff of Mercedes 14 (11.0-15.0) % Plt Count 227 (150-400) K/uL MPV 11.40 (7.40-12.00) fL Neut % (Auto) 71.6 (48.0-80.0) % Lymph % (Auto) 17.1 (16.0-40.0) % [place] % (Auto) 10.1 (0.0-15.0) % Eos % (Auto) 0.9 (0.0-7.0) % Baso % (Auto) 0.3 (0.0-1.5) % Neut # (Auto) 5.6 (1.4-5.7) K/uL Lymph # (Auto) 1.3 (0.6-2.4) K/uL Hardee # (Auto) 0.8 (0.0-0.8) K/uL Eos # (Auto) 0.1 (0.0-0.7) K/uL Baso # (Auto) 0.0 (0.0-0.1) K/uL Nucleated RBC % 0.0 /100WBC Nucleated RBCs # 0 K/uL Sodium (136-148) mmol/L Potassium (3.5-5.1) mmol/L Chloride (98-107) mmol/L Carbon Dioxide (21.0-32.0) mmol/L BUN (7.0-18.0) mg/dL Creatinine (0.8-1.3) mg/dL Est Cr Clr Drug Dosing mL/min Estimated GFR (MDRD) ml/min Glucose (74-106) mg/dL Calcium (8.5-10.1) mg/dL Total Bilirubin (0.2-1.0) mg/dL AST (15-37) IU/L ALT (14-63) IU/L Alkaline Phosphatase (46-116) U/L Total Protein (6.4-8.2) g/dL Albumin (3.4-5.0) g/dL Globulin (2.6-4.0) g/dL Albumin/Globulin Ratio (0.9-1.6) TSH, Ultra Sensitive (0.36-3.74) uIU/mL Salicylates (0-20) mg/dL Urine Opiates Screen NEGATIVE (NEGATIVE) Ur Oxycodone Screen NEGATIVE (NEGATIVE) Urine Methadone Screen NEGATIVE (NEGATIVE) Acetaminophen ug/mL Ur Barbiturates Screen NEGATIVE (NEGATIVE) Ur Phencyclidine Scrn NEGATIVE (NEGATIVE) Ur Amphetamine Screen NEGATIVE (NEGATIVE) U Methamphetamines Scrn NEGATIVE (NEGATIVE) U Benzodiazepines Scrn NEGATIVE (NEGATIVE) U Cocaine Metab Screen NEGATIVE (NEGATIVE) U Marijuana (THC) Screen NEGATIVE (NEGATIVE) Ethyl Alcohol mg/dL SARS-CoV-2 RNA (TOMI) NEGATIVE (NEGATIVE) 10/05/20 10/05/20 Range/Units 21:24 21:24 WBC (4.0-11.0) K/uL RBC (4.50-5.90) M/uL Hgb (13.0-17.0) g/dL Hct (38.0-50.0) % MCV (80.0-98.0) fL MCH (27.0-32.0) pg MCHC (31.0-37.0) g/dL RDW Std Deviation (28.0-62.0) fl RDW Coeff of Mercedes (11.0-15.0) % Plt Count (150-400) K/uL MPV (7.40-12.00) fL Neut % (Auto) (48.0-80.0) % Lymph % (Auto) (16.0-40.0) % Hardee % (Auto) (0.0-15.0) % Eos % (Auto) (0.0-7.0) % Baso % (Auto) (0.0-1.5) % Neut # (Auto) (1.4-5.7) K/uL Lymph # (Auto) (0.6-2.4) K/uL Hardee # (Auto) (0.0-0.8) K/uL Eos # (Auto) (0.0-0.7) K/uL Baso # (Auto) (0.0-0.1) K/uL Nucleated RBC % /100WBC Nucleated RBCs # K/uL Sodium 141 (136-148) mmol/L Potassium 2.8 L (3.5-5.1) mmol/L Chloride 102 (98-107) mmol/L Carbon Dioxide 30.9 (21.0-32.0) mmol/L BUN 6 L (7.0-18.0) mg/dL Creatinine 1.0 (0.8-1.3) mg/dL Est Cr Clr Drug Dosing 108.75 mL/min Estimated GFR (MDRD) > 60.0 ml/min Glucose 123 H (74-106) mg/dL Calcium 8.9 (8.5-10.1) mg/dL Total Bilirubin 1.0 (0.2-1.0) mg/dL AST 51 H (15-37) IU/L ALT 642 H (14-63) IU/L Alkaline Phosphatase 86 (46-116) U/L Total Protein 7.2 (6.4-8.2) g/dL Albumin 4.0 (3.4-5.0) g/dL Globulin 3.2 (2.6-4.0) g/dL Albumin/Globulin Ratio 1.3 (0.9-1.6) TSH, Ultra Sensitive 2.09 (0.36-3.74) uIU/mL Salicylates 3.2 (0-20) mg/dL Urine Opiates Screen (NEGATIVE) Ur Oxycodone Screen (NEGATIVE) Urine Methadone Screen (NEGATIVE) Acetaminophen <2.0 ug/mL Ur Barbiturates Screen (NEGATIVE) Ur Phencyclidine Scrn (NEGATIVE) Ur Amphetamine Screen (NEGATIVE) U Methamphetamines Scrn (NEGATIVE) U Benzodiazepines Scrn (NEGATIVE) U Cocaine Metab Screen (NEGATIVE) U Marijuana (THC) Screen (NEGATIVE) Ethyl Alcohol < 3.0 mg/dL SARS-CoV-2 RNA (TOMI) (NEGATIVE) Medications Discontinued Medications Generic Name Dose Route Start Last Admin Trade Name Freq PRN Reason Stop Dose Admin Potassium Chloride 40 meq 10/05/20 22:48 Potassium Chloride 20 Meq Tab.Er PO 10/05/20 22:49 ONETIME ONE Medical Clearance: 10/05/20 22:54 Patient has elevated ALT but no signs of was causing this elevated ALT. We spoke to [facility]. The patient patient be transferred. Departure - Departure Time of Disposition: 22:54 Disposition: DC/Tfer to Psych Hosp/Unit 65 Condition: Good Clinical Impression: Suicidal ideation - Discharge Information *PRESCRIPTION DRUG MONITORING PROGRAM REVIEWED*: Not Applicable *COPY OF PRESCRIPTION DRUG MONITORING REPORT IN PATIENT RENE: Not Applicable Instructions: Suicidal Feelings: How to Help Yourself Referrals: Shelia Ojeda DO [Primary Care Provider] - Forms: ED Department Discharge Sepsis Event Note (ED) - Evaluation Sepsis Screening Result: No Definite Risk - Focused Exam Vital Signs: Vital Signs Temp Pulse Resp BP Pulse Ox 10/05/20 22:45 110 H 20 143/97 H 96 10/05/20 22:15 114 H 20 145/95 H 95 10/05/20 21:45 116 H 20 148/102 H 95 10/05/20 21:15 123 H 20 142/95 H 95 10/05/20 20:45 98.1 F 112 H 19 156/99 H 95 - My Orders Last 24 Hours: My Active Orders 10/05/20 21:08 EKG Documentation Completion [RC] STAT - Assessment/Plan Last 24 Hours: My Active Orders 10/05/20 21:08 EKG Documentation Completion [RC] STAT Plan: Patient is a 40-year-old male presents today for sores ideation. Patient is try to harm self for the past few nights without success. Patient will be medically cleared and likely transferred.
[2020-10-05 21:59] LABS: ACETAMINOPHEN <2.0 ug/mL; BLOOD UREA NITROGEN,BUN 6 mg/dL (7.0-18.0); CARBON DIOXIDE,CO2 30.9 mmol/L (21.0-32.0); CHLORIDE,CL 102 mmol/L (98-107); GLUCOSE RANDOM 123 mg/dL (74-106); POTASSIUM,K 2.8 mmol/L (3.5-5.1); SODIUM,NA 141 mmol/L (136-148)
[2020-10-05] MEDS ORDERED: Potassium Chloride 20 MEQ Tab.ER PO ONE (22:48)
== END 2020-10-05 23:55 ==
LOC: MW.ED 20:38
DX: T65.92XA Toxic effect of unspecified substance, intentional self-harm, initial encounter (principal); T54.3X2A Toxic effect of corrosive alkalis and alkali-like substances, intentional self-harm, initial encounter; Z20.822 Contact with and (suspected) exposure to COVID-19
CPT/HCPCS: 36415; 80053; 80143; 80179; 80305; 80307; 84443; 85025; 87635; 93005; 99285; A9270; U0002